=== PATIENT | female | born 1980 | race Caucasian/White ===

== ENCOUNTER 2018-03-14 15:19 | Observation (INO) ==
[2018-03-14 16:13] LABS: Bilirubin,Urine Negative (Negative); Blood,Urine Negative (Negative); Clarity,Urine Clear (Clear); Color,Urine Yellow (Yellow); Glucose,Urine (UA) Normal (Normal); Ketones,Urine Trace mg/dL (Negative); Leukocyte Esterase,Urine Negative (Negative); Nitrite,Urine Negative (Negative); PH,Urine 6.5 pH Units (5.0-8.0); Protein,Urine Negative (Neg-Trace); Specific Gravity,Urine 1.023 (1.010-1.025); Urobilinogen,Urine Normal (Normal)
[2018-03-14 16:23] LABS: Amphetamine Screen,Urine Negative ng/mL (Cutoff=1000); Barbiturate Screen,Urine Negative ng/mL (Cutoff=200); Benzodiazepines Screen,Urine Negative ng/mL (Cutoff=200); Cannabinoid Screen,Urine Negative ng/mL (Cutoff = 50); Cocaine Screen,Urine Negative ng/mL (Cutoff= 300); Opiate Screen,Urine Negative ng/mL (Cutoff=300); Phencyclidine Screen,Urine Negative ng/mL (Cutoff=25)
--- NOTE | 2018-03-14 16:55 | OB/GYN Progress Note ---
Date of Encounter: 03/14/18 Time of Encounter: 16:39 - Assessment and Plan (1) 28 weeks gestation of Current Visit: Yes Status: Acute (2) Pelvic pressure in Current Visit: Yes Status: Acute SVE closed, thick and high. UA unremarkable. Comfort measures discussed. Discharge home with precautions. Subjective - Subjective Interval history: 37 year-old presenting at 28w1d with c/o left groin pain and pelvic pressure. She states the pain is constant and has been present for a few weeks but has gotten significantly worse since Saturday. She denies any other complaints including urinary sx, cramping, leaking, bleeding, vaginal discharge or other complaints. She has been seeing a chiropractor for her pain but this has not helped. Antepartum ROS: movement normal, no loss of fluid, no vaginal bleeding, no contractions Objective - Vital Signs Vital Signs: Intake and Output 03/14/18 03/14/18 03/14/18 07:59 15:59 23:59 Other: Weight 121.2 kg Patient Weight 03/14/18 23:59 Weight 121.2 kg - Exam FHR: category 1 FHR comments: FHT reassuring for GA. Auscultation: bilateral: normal Abdomen: Present: soft, gravid Cervical dilation: closed/thick/high Comments: SSE with thick, yellow discharge in vault. FFN collected but not sent after SVE was found to be closed, thick, and high. Vaginosis panel sent. - Labs Labs: Abnormal lab results Urine Ketones Trace mg/dL (Negative) H 03/14/18 10:40
--- NOTE | 2018-03-14 17:21 | Anesthesia Progress Note ---
Date of Encounter: 03/14/18 Time of Encounter: 15:15 Anesthesia Note - Note Note: 03/14/18 17:15 Consulted to bedside by Sofia Raphael regarding pt. currently 28 weeks concerning potential for epidural placement when labor occurs. Pt has numbness in right thigh for 15 years along with muscle pain in right hip. Pt noticed numbness that presented following vaginal delivery 15 years ago, and patient also had a fall on right hip causing pain to right hip. Dr. Burrows, anesthesiologist, also consulted for neuro assessment of the patient. Following assessment, it was concluded that without further imaging of the lumbar spine, that placing an epidural would not be advised.
--- NOTE | 2018-03-14 17:30 | Anesthesia Progress Note ---
Date of Encounter: 03/14/18 Time of Encounter: 17:15 Anesthesia Note - Note Note: 03/14/18 17:25 Consulted to patient bedside to assess potential for epidural when spontaneous labor occurs. Patient is 28 weeks and has complaints of numbness in her right thigh that has presented following vaginal delivery 15 years ago. Pt also has had a fall in recent history and has pain in right hip. Dr. Burrows, anesthesiologist, also consulted to bedside for neurological assessment. Following assessment, it was concluded that it would not be advised to have an epidural placed without further imaging, as currently no imaging exists.
[2018-03-14 18:07] LABS: Candida DNA Not Detected (Not Detect); Gardnerella DNA Not Detected (Not Detect); Trichomonas DNA Not Detected (Not Detect)
== END 2018-03-14 17:15 | disposition home or self-care (01) ==
LOC: 1NENULAB
PROVIDERS: ADMIT Registered Nurse; ATTEND Registered Nurse

== ENCOUNTER 2018-05-13 17:52 | Observation (INO) ==
[2018-05-13 18:26] LABS: Bilirubin,Urine Negative (Negative); Blood,Urine Negative (Negative); Clarity,Urine Clear (Clear); Color,Urine Yellow (Yellow); Glucose,Urine (UA) Normal (Normal); Ketones,Urine Negative (Negative); Leukocyte Esterase,Urine Negative (Negative); Nitrite,Urine Negative (Negative); PH,Urine 6.5 pH Units (5.0-8.0); Protein,Urine Negative (Neg-Trace); Specific Gravity,Urine 1.029 (1.010-1.025); Urobilinogen,Urine Normal (Normal)
[2018-05-13 18:34] LABS: Amphetamine Screen,Urine Negative ng/mL (Cutoff=1000); Barbiturate Screen,Urine Negative ng/mL (Cutoff=200); Benzodiazepines Screen,Urine Negative ng/mL (Cutoff=200); Cannabinoid Screen,Urine Negative ng/mL (Cutoff = 50); Cocaine Screen,Urine Negative ng/mL (Cutoff= 300); Opiate Screen,Urine Negative ng/mL (Cutoff=300); Phencyclidine Screen,Urine Negative ng/mL (Cutoff=25)
[2018-05-13 19:22] LABS: Basophils # 0.1 K/mcL (0.0-0.2); Basophils % 0.4 %; Eosinophils # 0.1 K/mcL (0.0-0.6); Eosinophils % 0.6 %; Hematocrit 38.1 % (35.3-44.9); Hemoglobin 13.1 g/dL (11.5-15.4); Immature Granulocytes % 1.4 % (0-4); Lymphocytes # 2.9 K/mcL (0.6-4.6); Lymphocytes % 21.1 %; Mean Corpuscular HGB Conc 34.4 g/dL (31.6-35.5); Mean Corpuscular Hemoglobin 32.3 pg (28.0-33.3); Mean Corpuscular Volume 94.1 fL (83.0-100.0); Mean Platelet Volume 9.5 fL (9.4-12.4); Monocytes # 0.8 K/mcL (0.0-1.3); Monocytes % 5.6 %; Neutrophils # 9.8 K/mcL (1.6-8.9); Platelet Count 209 K/mcL (140-400); Red Blood Count 4.05 M/mcL (3.82-4.97); Red Cell Distribution Width 13.6 % (11.5-14.5); Segmented Neutrophils % 70.9 %
[2018-05-13 19:32] LABS: Protein/Creatinine Ratio,Urine 0.2 mg/mg (0.00-0.20)
[2018-05-13 19:34] LABS: Alanine Aminotransferase 13 Units/L (7-52); Aspartate Amino Transferase 14 Units/L (13-39); BUN/Creatinine Ratio 14 (6-26); Blood Urea Nitrogen 7 mg/dL (6-20); Lactate Dehydrogenase 124 Units/L (140-271); Uric Acid 4.9 mg/dL (2.3-7.6); eGFR For Non-African Americans > 60 (> 60)
--- NOTE | 2018-05-13 20:18 | Discharge Summary ---
Date of Encounter: 05/13/18 Time of Encounter: 20:19 - Discharge Diagnosis (1) 36 weeks gestation of Priority: Primary Status: Acute Comments: Admitted for observation due to patient complaint of abdominal cramping at 36+ weeks. (2) NST (non-stress test) reactive Priority: Secondary Status: Acute Comments: FHR 145 bpm, moderate variability, +15x15 accels, no decels. (3) Abdominal cramping affecting Priority: Secondary Status: Acute Comments: SVE 1 cm/thick/ high with no change in 2 hours. Uterine irritability noted on toco monitor. PO hydration decreased frequency of contractions. UA showed specific gravity 1.029, patient encouraged to push fluids. (4) Elevated blood pressure affecting in third trimester, antepartum Priority: Secondary Status: Acute Comments: BP range 130-140's over 70's to 80's Patient asymptomatic at time of discharge. PIH labs drawn and WNL. Follow up appointment on 05/16/18 Recommend being off work tomorrow. - Discharge Medications Home Medications: Lamictal 400 mg PO DAILY 08/27/17 [History] Remeron 30 mg PO DAILY 08/27/17 [History] Vit Calc,Iron,Folic [ Vitamins] 1 tab PO DAILY 05/13/18 [History] Allergies/Adverse Reactions: Allergy/AdvReac Type Severity Reaction Status Date / Time No Known Allergies Allergy Verified 05/13/18 18:05 Data Procedures and tests throughout hospitalization: Laboratory Tests 05/13/18 05/13/18 05/13/18 18:08 18:08 18:53 WBC RBC Hgb Hct MCV MCH MCHC RDW Plt Count MPV Immature Gran % Seg Neutrophils % Lymphocytes % Monocytes % Eosinophils % Basophils % Neutrophils # Lymphocytes # Monocytes # Eosinophils # Basophils # BUN Creatinine Est GFR ( Amer) Est GFR (Non-Af Amer) BUN/Creatinine Ratio Uric Acid AST ALT Lactate Dehydrogenase Urine Color Yellow Urine Clarity Clear Urine pH 6.5 Ur Specific [place] 1.029 H Urine Protein Negative Urine Glucose (UA) Normal Urine Ketones Negative Urine Blood Negative Urine Nitrite Negative Urine Bilirubin Negative Urine Urobilinogen Normal Ur Leukocyte Esterase Negative Ur Culture Indicated? NO Urine Creatinine 87 Protein/Creatinin Ratio 0.20 Urine Total Protein 17 H Urine Opiates Screen Negative Ur Barbiturates Screen Negative Ur Phencyclidine Scrn Negative Ur Amphetamines Screen Negative U Benzodiazepines Scrn Negative Urine Cocaine Screen Negative U Marijuana (THC) Screen Negative Ur Drug Screen Interp See Below 05/13/18 05/13/18 18:53 18:53 WBC 13.9 H RBC 4.05 Hgb 13.1 Hct 38.1 MCV 94.1 MCH 32.3 MCHC 34.4 RDW 13.6 Plt Count 209 MPV 9.5 Immature Gran % 1.4 Seg Neutrophils % 70.9 Lymphocytes % 21.1 Monocytes % 5.6 Eosinophils % 0.6 Basophils % 0.4 Neutrophils # 9.8 H Lymphocytes # 2.9 Monocytes # 0.8 Eosinophils # 0.1 Basophils # 0.1 BUN 7 Creatinine 0.51 L Est GFR ( Amer) > 60 Est GFR (Non-Af Amer) > 60 BUN/Creatinine Ratio 14 Uric Acid 4.9 AST 14 ALT 13 Lactate Dehydrogenase 124 L Urine Color Urine Clarity Urine pH Ur Specific [place] Urine Protein Urine Glucose (UA) Urine Ketones Urine Blood Urine Nitrite Urine Bilirubin Urine Urobilinogen Ur Leukocyte Esterase Ur Culture Indicated? Urine Creatinine Protein/Creatinin Ratio Urine Total Protein Urine Opiates Screen Ur Barbiturates Screen Ur Phencyclidine Scrn Ur Amphetamines Screen U Benzodiazepines Scrn Urine Cocaine Screen U Marijuana (THC) Screen Ur Drug Screen Interp Labs on day of discharge: Labs from last 24 hours 05/13/18 05/13/18 05/13/18 18:53 18:53 18:53 WBC 13.9 H RBC 4.05 Hgb 13.1 Hct 38.1 MCV 94.1 MCH 32.3 MCHC 34.4 RDW 13.6 Plt Count 209 MPV 9.5 Immature Gran % 1.4 Seg Neutrophils % 70.9 Lymphocytes % 21.1 Monocytes % 5.6 Eosinophils % 0.6 Basophils % 0.4 Neutrophils # 9.8 H Lymphocytes # 2.9 Monocytes # 0.8 Eosinophils # 0.1 Basophils # 0.1 BUN 7 Creatinine 0.51 L Est GFR ( Amer) > 60 Est GFR (Non-Af Amer) > 60 BUN/Creatinine Ratio 14 Uric Acid 4.9 AST 14 ALT 13 Lactate Dehydrogenase 124 L Urine Color Urine Clarity Urine pH Ur Specific [place] Urine Protein Urine Glucose (UA) Urine Ketones Urine Blood Urine Nitrite Urine Bilirubin Urine Urobilinogen Ur Leukocyte Esterase Ur Culture Indicated? Urine Creatinine 87 Protein/Creatinin Ratio 0.20 Urine Total Protein 17 H Urine Opiates Screen Ur Barbiturates Screen Ur Phencyclidine Scrn Ur Amphetamines Screen U Benzodiazepines Scrn Urine Cocaine Screen U Marijuana (THC) Screen Ur Drug Screen Interp 05/13/18 05/13/18 18:08 18:08 WBC RBC Hgb Hct MCV MCH MCHC RDW Plt Count MPV Immature Gran % Seg Neutrophils % Lymphocytes % Monocytes % Eosinophils % Basophils % Neutrophils # Lymphocytes # Monocytes # Eosinophils # Basophils # BUN Creatinine Est GFR ( Amer) Est GFR (Non-Af Amer) BUN/Creatinine Ratio Uric Acid AST ALT Lactate Dehydrogenase Urine Color Yellow Urine Clarity Clear Urine pH 6.5 Ur Specific [place] 1.029 H Urine Protein Negative Urine Glucose (UA) Normal Urine Ketones Negative Urine Blood Negative Urine Nitrite Negative Urine Bilirubin Negative Urine Urobilinogen Normal Ur Leukocyte Esterase Negative Ur Culture Indicated? NO Urine Creatinine Protein/Creatinin Ratio Urine Total Protein Urine Opiates Screen Negative Ur Barbiturates Screen Negative Ur Phencyclidine Scrn Negative Ur Amphetamines Screen Negative U Benzodiazepines Scrn Negative Urine Cocaine Screen Negative U Marijuana (THC) Screen Negative Ur Drug Screen Interp See Below Date of admission: 05/13/18 17:52 Discharging clinician: Rhianna Salas Anticipated date of discharge: 05/13/18 - Patient Status Disposition: Home, Self-Care Condition: Good Functional capacity at discharge: independent ambulation Overall status at discharge: patient is back to baseline - Discharge Instructions Follow Up With: Sylwia Cortes CNM [Non-Partnered Physician] - Additional Instructions: Work excuse for tomorrow. May return on , 05/15/18 - Diet and Activity Activity: resume usual activities as tolerated Diet: regular diet Hospital Course [employer] Hospital course: Yolanda arrives to the OB department today with complaint of general abdominal soreness all day. States she has been feeling contractions since this morning. Patient reports positive movement, denies leakage of fluid and vaginal bleeding. Patient states the bilateral lower extremity edema is usual for her. Her job requires her to sit at a desk throughout the day. She has an appointment with the [facility] Saturday05/16/18. No cervical change in 2 hours, PIH labs all returned within normal limits. Time Attestation: Total time spent providing and/or coordinating discharge services: Time Spent: Less than 30 minutes Exam - Constitutional General appearance IM: A&O X 3, pleasant, no acute distress, obese - Respiratory Respiratory exam: Present: CTAB - Cardiovascular Cardiovascular exam IM: Present: RRR, +S1, +S2 - GI/Abdominal GI/Abdominal exam IM: normal bowel sounds, soft - Rectal Rectal exam: deferred - Extremities Exam Extremities exam IM: Present: full ROM, normal capillary refill, normal inspection, pedal edema, warm - Neurological Exam Neurological exam: alert, normal gait, oriented X3, reflexes normal - VTE Reasons for not Prescribing Prophylaxis: Treatment not Indicated - Low risk for VTE
== END 2018-05-13 20:21 | disposition home or self-care (01) ==
LOC: 1NENULAB
PROVIDERS: ADMIT Advanced Practice Midwife; ATTEND Advanced Practice Midwife

== ENCOUNTER 2018-05-20 14:59 | Observation (INO) ==
[2018-05-20 15:38] LABS: Bilirubin,Urine Negative (Negative); Blood,Urine Negative (Negative); Clarity,Urine Clear (Clear); Color,Urine Yellow (Yellow); Glucose,Urine (UA) Normal (Normal); Ketones,Urine Trace mg/dL (Negative); Leukocyte Esterase,Urine Negative (Negative); Nitrite,Urine Negative (Negative); PH,Urine 6.5 pH Units (5.0-8.0); Protein,Urine Negative (Neg-Trace); Specific Gravity,Urine 1.019 (1.010-1.025); Urobilinogen,Urine Normal (Normal)
[2018-05-20 15:50] LABS: Amphetamine Screen,Urine Negative ng/mL (Cutoff=1000); Barbiturate Screen,Urine Negative ng/mL (Cutoff=200); Benzodiazepines Screen,Urine Negative ng/mL (Cutoff=200); Cannabinoid Screen,Urine Negative ng/mL (Cutoff = 50); Cocaine Screen,Urine Negative ng/mL (Cutoff= 300); Opiate Screen,Urine Negative ng/mL (Cutoff=300); Phencyclidine Screen,Urine Negative ng/mL (Cutoff=25)
--- NOTE | 2018-05-20 16:53 | Discharge Summary ---
Date of Encounter: 05/20/18 Time of Encounter: 16:54 - Discharge Diagnosis (1) 37 weeks gestation of Priority: Primary Status: Acute Comments: admitted for labor evaluation (2) NST (non-stress test) reactive Priority: Secondary Status: Acute Comments: FHR baseline 135 bpm moderate variability +15x15 accels no decels noted. Cat. 1 tracing (3) Pelvic pressure in Priority: Secondary Status: Acute Comments: UA negative No cervical change following observation - Discharge Medications Home Medications: Lamictal 400 mg PO DAILY 08/27/17 [History] Remeron 30 mg PO DAILY 08/27/17 [History] Vit Calc,Iron,Folic [ Vitamins] 1 tab PO DAILY 05/13/18 [History] Allergies/Adverse Reactions: Allergy/AdvReac Type Severity Reaction Status Date / Time No Known Allergies Allergy Verified 05/13/18 18:05 Data Procedures and tests throughout hospitalization: Laboratory Tests 05/20/18 05/20/18 15:25 15:25 Urine Color Yellow Urine Clarity Clear Urine pH 6.5 Ur Specific [place] 1.019 Urine Protein Negative Urine Glucose (UA) Normal Urine Ketones Trace H Urine Blood Negative Urine Nitrite Negative Urine Bilirubin Negative Urine Urobilinogen Normal Ur Leukocyte Esterase Negative Ur Culture Indicated? NO Urine Opiates Screen Negative Ur Barbiturates Screen Negative Ur Phencyclidine Scrn Negative Ur Amphetamines Screen Negative U Benzodiazepines Scrn Negative Urine Cocaine Screen Negative U Marijuana (THC) Screen Negative Ur Drug Screen Interp See Below Labs on day of discharge: Labs from last 24 hours 05/20/18 05/20/18 15:25 15:25 Urine Color Yellow Urine Clarity Clear Urine pH 6.5 Ur Specific [place] 1.019 Urine Protein Negative Urine Glucose (UA) Normal Urine Ketones Trace H Urine Blood Negative Urine Nitrite Negative Urine Bilirubin Negative Urine Urobilinogen Normal Ur Leukocyte Esterase Negative Ur Culture Indicated? NO Urine Opiates Screen Negative Ur Barbiturates Screen Negative Ur Phencyclidine Scrn Negative Ur Amphetamines Screen Negative U Benzodiazepines Scrn Negative Urine Cocaine Screen Negative U Marijuana (THC) Screen Negative Ur Drug Screen Interp See Below Date of admission: 05/20/18 14:59 Primary care physician: Timothy Vasquez MD Discharging clinician: Sylwia Cortes Anticipated date of discharge: 05/20/18 - Patient Status Disposition: Home, Self-Care Condition: Good Functional capacity at discharge: independent ambulation - Discharge Instructions Follow Up With: Timothy Vasquez MD [Primary Care Provider] - Sylwia Cortes CNM [Non-Partnered Physician] - - Diet and Activity Activity: increase activity as tolerated Diet: regular diet Hospital Course [employer] Hospital course: Patient is a 37 y/o at 37w5d presents to labor and delivery with complaints of sharp pressure in the pelvis when fetus moves. Patient denies VB or regular contractions. Patient denies dysuria or urinary frequency. Patient reports good movement. Time Attestation: Total time spent providing and/or coordinating discharge services: Time Spent: Less than 30 minutes Exam - Constitutional General appearance IM: A&O X 3, pleasant, answers questions appropriately - Respiratory Respiratory exam: Present: CTAB - Cardiovascular Cardiovascular exam IM: Present: RRR, +S1, +S2 - GI/Abdominal GI/Abdominal exam IM: normal bowel sounds - Extremities Exam Extremities exam IM: Present: full ROM, normal capillary refill, normal inspection - Other Additional findings: SVE 1.5/60/-2 per RN FHR 135 bpm moderate variability +15x15 accels no decels noted. Irregular contractions noted. Cat. 1 tracing. - VTE Reasons for not Prescribing Prophylaxis: Treatment not Indicated - Low risk for VTE
== END 2018-05-20 16:54 | disposition home or self-care (01) ==
LOC: 1NENULAB
PROVIDERS: ADMIT Advanced Practice Midwife; ATTEND Advanced Practice Midwife

== ENCOUNTER 2018-05-30 06:00 | Inpatient (IN) ==
[2018-05-30] MEDS ORDERED: Albuterol 2.5 MG/3 ML NEBULIZER IH ONE (06:34)
[2018-05-30] MEDS ORDERED: Ringers Solution, Lactated 1,000 ML ONE (06:57)
[2018-05-30 07:17] LABS: Hematocrit 39.5 % (35.3-44.9); Hemoglobin 13.5 g/dL (11.5-15.4); Mean Corpuscular HGB Conc 34.2 g/dL (31.6-35.5); Mean Corpuscular Hemoglobin 31.8 pg (28.0-33.3); Mean Corpuscular Volume 93.2 fL (83.0-100.0); Mean Platelet Volume 10.1 fL (9.4-12.4); Platelet Count 197 K/mcL (140-400); Red Blood Count 4.24 M/mcL (3.82-4.97); Red Cell Distribution Width 13.7 % (11.5-14.5)
[2018-05-30] MEDS ORDERED: Penicillin G Potassium 5,000,000 UNIT in 0.9 % Sodium Chloride Mini Bag 100 ML IVPB ONE (07:25)
[2018-05-30] MEDS ORDERED: Metoclopramide 10 MG/2 ML VIAL IVP PRN (08:59)
[2018-05-30] MEDS ORDERED: Naloxone 0.4 MG/ML INJ IVP PRN (08:59)
[2018-05-30] MEDS ORDERED: *HR* Nalbuphine 10 MG/ML AMPUL IVP PRN (08:59)
[2018-05-30] MEDS ORDERED: Ondansetron 4 MG/2 ML VIAL IVP PRN (08:59)
[2018-05-30] MEDS ORDERED: Famotidine 20 MG/2 ML VIAL IVP PRN (08:59)
[2018-05-30] MEDS ORDERED: Ringers Solution, Lactated 1,000 ML IVC SCH (09:00)
[2018-05-30] MEDS ORDERED: miSOPROStol 25 MCG TABLET VG ONE (09:15)
--- NOTE | 2018-05-30 10:07 | Anesthesia Evaluation PreOp ---
Date of Encounter: 05/30/18 Time of Encounter: 10:04 - Past History Planned Operation: Primary C/S Cardiac History: Denies any Significant Hx Pulmonary History: Denies Any Significant HX RIPRAP WORKER History: Denies Any Significant HX Other Medical History: Other (Previous back issues (see anes consultation note 02/2018). No imaging/physician documentation available about specific back issues with this patient. Therefore, epidural or spinal placement is discouraged.) Anesthesia History: No Prior Anesthetic Complications, Past Anesthesia Alcohol Use: none Drug use: none Medications and Allergies Lamictal 400 mg PO DAILY 08/27/17 [History] Remeron 30 mg PO DAILY 08/27/17 [History] Vit Calc,Iron,Folic [ Vitamins] 1 tab PO DAILY 05/13/18 [History] Allergy/AdvReac Type Severity Reaction Status Date / Time No Known Allergies Allergy Verified 05/13/18 18:05 - Meds/Allergy Pre-op Review Medications Reviewed: Yes Allergies Reviewed: Yes Beta Blockers on Current Med List: No Anesthesia Results - Labs 05/30/18 06:32 Anesthesia Exam O2 Sat Height 1.73 m Weight 128.7 kg O2 Sat by Pulse Oximetry 97 Vital Signs Resp Pulse Ox 16 97 05/30/18 06:55 05/30/18 06:55 NPO (# of Hours): 4 Pain Scale: 0 Pain Scale Used: Numeric (1 - 10) - HEENT Pupil (Motor): Pupils equal Mallampati: II Teeth: Normal Oral Opening: Greater than 3 - RIPRAP WORKER LOC: Oriented RIPRAP WORKER Motor: Normal RUE, Normal LUE, Normal RLE, Normal LLE, Normal Face RIPRAP WORKER Sensory: Normal: RUE, LUE, RLE, LLE, Face - Cardiac Rhythm: Regular Murmur: None JVD: No Carotid Bruit: No - Pulmonary Breath Sounds: bilateral Clear Respiratory Effort: Symmetrical Anesthesia Assess/Plan ASA Score: 2 Level of consciousness: Cooperative, Oriented Anesthetic Plan: General (Pt understands that an epidural will not be placed. Also understands that if c/s is needed, a spinal would not be placed. GETA will be administered.) Autologous Blood: Yes Monitoring Plan: Standard Monitors Recovery Plan: PACU
[2018-05-30] MEDS: Penicillin G Potassium 2,500,000 UNIT in 0.9 % Sodium Chloride 100 ML IVPB SCH ×2 (12:40→17:36)
--- NOTE | 2018-05-30 13:42 | OB/GYN History & Physical ---
Date of Encounter: 05/30/18 Time of Encounter: 13:42 Assessment and Plan (1) 39 weeks gestation of Current visit: Yes Status: Acute For induction of labor at 39 weeks. Cytotec induction and Walker bulb. Pitocin if necessary, AROM when appropriate. IV pain medication when patient desires. 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 Anesthesia has already seen the patient and she understands the plan of care. Anticipate (2) Group beta Strep positive Current visit: Yes Status: Acute Prophylaxis with penicillin G every 4 hours until delivery. (3) NST (non-stress test) reactive Current visit: No Status: Acute FHR 150bpm, moderate variability, 15 x 15 accelerations, no decelerations. (4) Polyhydramnios affecting in third trimester Current visit: Yes Status: Acute Admit for labor induction. AROM when able with appropriate station. History of Present Illness Chief complaint: Induction of labor HPI: Ms. Ibrahim is a 37 year old female at 39 weeks 1 day who presents for induction of labor secondary to polyhydramnios level of 24.3. She is GBS positive and will be treated with penicillin. Last week in the office she was treated for bronchitis in a sinus infection. She is on day 7 of amoxicillin treatment. She states she is feeling fine today oxygen saturation has been 95% or greater her chest x-ray was normal flu swab and strep swab both returned negative. She endorses positive movement denies vaginal bleeding and leakage of fluid. 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 Has been seen by anesthesia and understands she will not be able to get an epidural. Blood type is O+ GBS positive Rubella immune HBsAg nonreactive T. Pall negative Varicella positive HIV nonreactive Past Med Surg Social Fam HX - Past Medical History Source: patient Medical history: no medical history Psychiatric history: anxiety, depression, other - Past Surgical History Surgical History: other Additional surgical history: lasik surgery - Social History Smoking Status: Former smoker Smokeless Tobacco Status: No Alcohol use: none Drug use: none Current living situation: Home - Independent Activity Level: Independent ambulation Recent Out of Country Travel Within the Last 8 Weeks: No Exposure or Possible Exposure to Illness During Travel: No - Family History Mother Living Status: Still Living Hx Family Cardiac Disorders: Yes Hx Family GI Disorders: Yes (crohns, ulcerative colitis) Obstetrical History - Pregnancies : 2 Para: 1 Term: 1 : 0 Ab's: 0 Livin Medications and Allergies Lamictal 400 mg PO DAILY 08/27/17 [History] Remeron 30 mg PO DAILY 08/27/17 [History] Vit Calc,Iron,Folic [ Vitamins] 1 tab PO DAILY 05/13/18 [History] Allergy/AdvReac Type Severity Reaction Status Date / Time No Known Allergies Allergy Verified 05/13/18 18:05 Exam - Vital Signs Vital signs: Initial Vital Signs Resp Pulse Ox 16 97 05/30/18 06:55 05/30/18 06:55 - Constitutional Constitutional: well developed, well nourished, no acute distress - Neck Neck exam: full ROM, normal inspection - Lungs Respiratory exam: CTAB - Cardiovascular Cardiovascular exam: RRR, +S1, +S2 - Breasts Breast: bilateral: normal - Abdomen Abdomen: Present: bowel sounds normal, gravid, non tender - Extremities Extremities exam: full ROM, normal capillary refill, normal inspection - Vulva Vulva: bilateral: normal - Vagina Vagina: Present: normal moisture - Cervix Dilation: 2 Effacement: 80 Station: -2 - Uterus Uterus exam: Present: normal size - Anus/Rectum Anus/Rectum: Present: normal perianal skin Results Result Diagrams: 05/30/18 06:32 Abnormal lab results WBC 13.7 K/mcL (4.3-11.1) H 05/30/18 06:32 All other labs normal. - VTE Reasons for not Prescribing Prophylaxis: Treatment not Indicated - Low risk for VTE
[2018-05-30] MEDS ORDERED: *HR* Nalbuphine 10 MG/ML AMPUL IV PRN (14:47)
[2018-05-30] MEDS ORDERED: *HR* Promethazine 25 MG/ML VIAL IVP PRN (16:25)
--- NOTE | 2018-05-30 17:49 | OB Labor Progress Note ---
Date of Encounter: 05/30/18 Time of Encounter: 13:30 Labor Progress Note - Subjective Subjective: Patient resting in bed without complaint at this time. - Vital Signs Vital Signs: WNL Afebrile - Cervix Cervix: 1-2/80/-2 - Heart Tones Heart Tones: 14 bpm, moderate variability, +15x15 accels, no decelerations. - [place]: 2-4 minutes - Interventions Interventions: SVE Placed cervical marino and filled with 60 mL sterile water Patient tolerated without difficulty. - Plan Plan: Continue labor management Gentle tug to marino hourly until expelled. AROM when appropriate Begin Pitocin when necessary
--- NOTE | 2018-05-30 18:35 | OB Labor Progress Note ---
Date of Encounter: 05/30/18 Time of Encounter: 18:32 Labor Progress Note - Subjective Subjective: Patient coping well with contractions. Has not yet asked for pain medication. - Vital Signs Vital Signs: WNL, Afebrile - Cervix Cervix: 5/80/-1 - Heart Tones Heart Tones: FHR 150 bpm, moderate variability, +15x15 accels, early decels after AROM. - [place]: 2-4 minutes - Interventions Interventions: SVE, AROM for large amount of clear fluid. - Plan Plan: Continue labor management. Consider labor augmentation with Pitocin
[2018-05-31] MEDS ORDERED: *HR* Promethazine 25 MG/ML VIAL IVP ONE (00:16)
--- NOTE | 2018-05-31 00:22 | OB Labor Progress Note ---
Date of Encounter: 05/31/18 Time of Encounter: 00:19 Labor Progress Note - Subjective Subjective: Patient coping well with contractions. Feeling moderate contraction pain, breathing well with them. - Vital Signs Vital Signs: WNL, Afebrile - Cervix Cervix: 5-6/100/-1 - Heart Tones Heart Tones: FHR 145 bpm, moderate variability, +15x15 accels, occasional early deceleration. - Cross Keys Cross Keys: Irregular contractions, IUPC inserted - Interventions Interventions: SVE, IUPC placed - Plan Plan: Continue labor management. Initiate Pitocin Anticipate
[2018-05-31] MEDS ORDERED: Oxytocin 20 units/ LR 1000 mL 20 UNIT/1,000 ML BAG IVC SCH ×2 (00:30→06:16)
[2018-05-31] MEDS ORDERED: *HR* FentaNYL (PF) 100 MCG/2 ML VIAL IVP ONE (03:34)
[2018-05-31] MEDS ORDERED: Ibuprofen 600 MG TABLET PO ONE (06:02)
--- NOTE | 2018-05-31 06:10 | OB/GYN Procedure Note ---
Addendum entered and electronically signed by Rhianna Salas CNM 05/31/18 06:29: Dr. Ballard in room for entirety of delivery for proctoring. Original Note: Delivery - Delivery Date: 05/31/18 Provider: Rhianna Salas (Dr. Roberson in room for proctoring) Intrapartum events: none Delivery induction: marino, misoprostol Delivery augmentation: rupture of membranes, pitocin Delivery monitor: external FHT, external uterine, internal uterine Anesthesia: none Quantitated Blood Loss: 100 - (s) Infant A Infant Delivery Date: 05/31/18 Delivery Time: 05:29 Presentation: vertex Position: TAINA Route of delivery: Gender: Male Viability: Viable Weight Gram: 4055 kg at 1 minute: 8 at 5 mins: 9 Shoulder Dystocia: encountered Shoulder Dystocia Maneuvers: Conner maneuver, suprapubic pressure, Causey maneuver Shoulder dystocia time elapsed: 100 seconds Specimens collected: cord blood Placenta: spontaneous Cord: 3 umbilical vessels - Repair Episiotomy: none Laceration Description: Periurethral - Complications Delivery comments: Called to room for patient 9 cm with a strong urge to push. Once I arrived in room, patient was found to be completely dilated. Under maternal effort, spontaneous delivery of viable male over intact perineum. Periurethral laceration noted, hemostatic therefore not repaired. 100 second shoulder dystocia encountered. Conner maneuver and suprapubic pressure attempted and did not resolve dystocia. Attempted Causey maneuver and delivery of posterior arm without success. At that time Dr. Ballard stepped in and was able to deliver the infant with downward traction. Infant placed on maternal abdomen for drying and stimulation. Apgars were 8 at 1 minute and 9 at 5 minutes Cord clamped and cut by father of baby after pulsation ceased. Spontaneous delivery of intact placenta, EBL 200 mL's. No nuchal cord or meconium encountered. Mother and infant stable in kangaroo care for 2 hour recovery. - Disposition Mom disposition: stable in LDR disposition: stable in LDR
[2018-05-31] MEDS ORDERED: Acetaminophen 325 MG TABLET PO PRN (06:16)
[2018-05-31] MEDS ORDERED: Measles/Mumps/Rubella Vacc 0.5 ML VIAL SQ PRN (06:16)
[2018-05-31] MEDS ORDERED: Benzocaine/Menthol 56 GM AEROSOL SPRAY TP PRN (06:16)
[2018-05-31] MEDS: Ibuprofen 600 MG TABLET PO PRN ×2 (06:22→17:17)
[2018-05-31] MEDS ORDERED: lamoTRIgine 100 MG TABLET PO SCH (09:00)
[2018-05-31] MEDS: Prenatal Vit/FA 1 EACH TABLET PO SCH (10:30)
[2018-05-31] MEDS: Mirtazapine 15 MG TABLET PO SCH ×2 (10:30→20:09)
[2018-05-31] MEDS: NIFEdipine XL (24 HR) 30 MG TAB.ER.24 PO SCH (16:02)
[2018-05-31] MEDS: Albuterol 2.5 MG/3 ML NEBULIZER IH PRN (16:24)
[2018-06-01] MEDS: Ibuprofen 600 MG TABLET PO PRN (06:19)
[2018-06-01 06:37] LABS: Basophils # 0.1 K/mcL (0.0-0.2); Basophils % 0.5 %; Eosinophils # 0.2 K/mcL (0.0-0.6); Eosinophils % 1.6 %; Hematocrit 34.5 % (35.3-44.9); Hemoglobin 11.6 g/dL (11.5-15.4); Immature Granulocytes % 1.2 % (0-4); Lymphocytes # 2.6 K/mcL (0.6-4.6); Lymphocytes % 26.3 %; Mean Corpuscular HGB Conc 33.6 g/dL (31.6-35.5); Mean Corpuscular Volume 95.3 fL (83.0-100.0); Mean Platelet Volume 9.6 fL (9.4-12.4); Monocytes # 0.5 K/mcL (0.0-1.3); Neutrophils # 6.5 K/mcL (1.6-8.9); Platelet Count 164 K/mcL (140-400); Red Blood Count 3.62 M/mcL (3.82-4.97); Red Cell Distribution Width 13.9 % (11.5-14.5); Segmented Neutrophils % 65.4 %
[2018-06-01] MEDS: Prenatal Vit/FA 1 EACH TABLET PO SCH (07:59)
[2018-06-01] MEDS: NIFEdipine XL (24 HR) 30 MG TAB.ER.24 PO SCH (07:59)
--- NOTE | 2018-06-01 10:14 | Discharge Summary ---
Date of Encounter: 06/01/18 Time of Encounter: 10:12 - Discharge Diagnosis (1) Status post vaginal delivery Priority: Primary Status: Acute Comments: Patient meeting day 1 milestones. Voiding without difficulty, positive bowel movement since delivery, lochia light to moderate. Tolerating regular diet. Pain well-controlled with Motrin. Discharge to guest status today, follow-up in 4 weeks as scheduled. Patient requests Depo-Provera before discharge. (2) hypertension Priority: Secondary Status: Acute Comments: Elevated blood pressures noted . Highest pressure 160/97. Patient reports history of chronic hypertension and was previously on HCTZ. Initiated Procardia 30 mg XL today. Will send patient home with this medication. Dr. Ballard aware and agrees with plan of care. (3) Bronchitis Priority: Secondary Status: Acute Comments: Patient diagnosed approximately 1 week ago. Continue previously prescribed amoxicillin until completely gone. Follow-up with PCP if needed - Discharge Medications Prescriptions: Ibuprofen [Motrin] 600 mg PO Q6HR PRN #60 tablet PRN Reason: Cramping NIFEdipine XL (24 HR) [Procardia XL] 30 mg PO DAILY #30 tab.er.24 Home Medications: Lamictal 400 mg PO DAILY 08/27/17 [History] Remeron 30 mg PO DAILY 08/27/17 [History] Vit Calc,Iron,Folic [ Vitamins] 1 tab PO DAILY 05/13/18 [History] Acetaminophen [Tylenol] 650 mg PO Q6HR PRN tablet 06/01/18 [Rx] Benzocaine/Menthol Mize [Dermoplast Mize] 1 appl TP QID PRN aerosol 06/01/18 [Rx] Docusate [Colace] 100 mg PO BID capsule 06/01/18 [Rx] Ibuprofen [Motrin] 600 mg PO Q6HR PRN #60 tablet 06/01/18 [Rx] NIFEdipine XL (24 HR) [Procardia XL] 30 mg PO DAILY #30 tab.er.24 06/01/18 [Rx] Allergies/Adverse Reactions: Allergy/AdvReac Type Severity Reaction Status Date / Time No Known Allergies Allergy Verified 05/13/18 18:05 Data Procedures and tests throughout hospitalization: Laboratory Tests 05/30/18 05/30/18 06/01/18 06:32 08:58 06:26 WBC 13.7 H 9.9 RBC 4.24 3.62 L Hgb 13.5 11.6 D Hct 39.5 34.5 L MCV 93.2 95.3 MCH 31.8 32.0 MCHC 34.2 33.6 RDW 13.7 13.9 Plt Count 197 164 MPV 10.1 9.6 Immature Gran % 1.2 Seg Neutrophils % 65.4 Lymphocytes % 26.3 Monocytes % 5.0 Eosinophils % 1.6 Basophils % 0.5 Neutrophils # 6.5 Lymphocytes # 2.6 Monocytes # 0.5 Eosinophils # 0.2 Basophils # 0.1 Hep Bs Antigen Nonreactive Labs on day of discharge: Labs from last 24 hours 06/01/18 06:26 WBC 9.9 RBC 3.62 L Hgb 11.6 D Hct 34.5 L MCV 95.3 MCH 32.0 MCHC 33.6 RDW 13.9 Plt Count 164 MPV 9.6 Immature Gran % 1.2 Seg Neutrophils % 65.4 Lymphocytes % 26.3 Monocytes % 5.0 Eosinophils % 1.6 Basophils % 0.5 Neutrophils # 6.5 Lymphocytes # 2.6 Monocytes # 0.5 Eosinophils # 0.2 Basophils # 0.1 - Impressions ITS Impressions Chest X-Ray 05/30/18 06:33 IMPRESSION: No acute cardiopulmonary abnormality. D/ / Khai Molina MD / Khai Molina MD Interpreting Provider: Khai Molina MD Date of admission: 05/30/18 06:10 Primary care physician: Timothy Vasquez MD Consults: 05/31/18 06:16 Consult to Homeworker [CONS] Routine Comment: Vaginal delivery, consult needed Discharging clinician: Rhianna Salas Anticipated date of discharge: 06/01/18 - Patient Status Disposition: Home, Self-Care Condition: Good Functional capacity at discharge: independent ambulation Overall status at discharge: patient is progressing back to baseline - Discharge Instructions Follow Up With: Timothy Vasquez MD [Primary Care Provider] - - Diet and Activity Activity: resume usual activities as tolerated Diet: regular diet Hospital Course Reason for admission: induction of labor, IUP at term Delivery: Episiotomy: none Laceration: other (periurethral) Other procedures: none complications: none Discharge diagnosis: IUP at term delivered [place] baby: male Hospital course: Patient is meeting day 1 milestones. Tolerating regular diet, voiding without difficulty, positive bowel movement since delivery, pain well-controlled with Motrin. Elevated blood pressures noted , initiated Procardia XL 30 mg daily and patient will be sent home with this. Will discharge to guest status today as is a 3-day-old. Delivery Date: 05/31/18 Provider: Rhianna Salas (Dr. Roberson in room for proctoring) Intrapartum events: none Delivery induction: marino, misoprostol Delivery augmentation: rupture of membranes, pitocin Delivery monitor: external FHT, external uterine, internal uterine Anesthesia: none Quantitated Blood Loss: 100 - Infant (s) A Delivery Date: 05/31/18 Delivery Time: 05:29 Presentation: vertex Position: TAINA Route of delivery: Gender: Male Viability: Viable Weight Gram: 4055 kg at 1 minute: 8 at 5 mins: 9 Shoulder Dystocia: encountered Shoulder Dystocia Maneuvers: Conner maneuver, suprapubic pressure, Causey maneuver Shoulder dystocia time elapsed: 100 seconds Specimens collected: cord blood Placenta: spontaneous Cord: 3 umbilical vessels - Repair Episiotomy: none Laceration Description: Periurethral Time Attestation: Total time spent providing and/or coordinating discharge services: Time Spent: Less than 30 minutes Exam - Constitutional Vitals: Temp Pulse Resp BP Pulse Ox 98.5 F 92 16 136/87 95 06/01/18 07:30 06/01/18 07:30 06/01/18 07:30 06/01/18 07:30 06/01/18 07:30 General appearance IM: A&O X 3, pleasant, no acute distress - Respiratory Respiratory exam: Present: CTAB - Cardiovascular Cardiovascular exam IM: Present: RRR, +S1, +S2 - GI/Abdominal GI/Abdominal exam IM: normal bowel sounds - Rectal Rectal exam: deferred - Uterine Tone: Firm Uterus Position: At Umbilicus - Extremities Exam Extremities exam IM: Present: full ROM, normal capillary refill, normal inspection, pedal edema - Neurological Exam Neurological exam: alert, normal gait, oriented X3
[2018-06-01 15:54] VITALS: BP 154/92
[2018-06-01] MEDS: Albuterol 2.5 MG/3 ML NEBULIZER IH PRN (16:38)
[2018-06-01] MEDS ORDERED: lamoTRIgine 100 MG TABLET PO SCH (21:00)
== END 2018-06-01 17:26 | disposition home or self-care (01) | DRG 560 ==
LOC: 1NENULAB 06:10 → 1NENUOBS 05-31 09:11
PROVIDERS: ADMIT Registered Nurse; ATTEND Registered Nurse